=== PATIENT | male | born 1945 | race Caucasian/White ===

== ENCOUNTER 2023-09-25 09:56 | Observation (INO) ==
[2023-09-25] MEDS ORDERED: IOPAMIDOL 100 ML BOTTLE IV ONE (09:57)
[2023-09-25 10:14] LABS: POC Calcium, Ionized 1.27 (1.16-1.32); POC Creatinine 0.8 (0.6-1.2); POC Potassium 4.5 (3.3-5.1)
[2023-09-25 10:24] LABS: POC INR 1.2 (0.8-1.2); POC Pro Time 14.4 (11.9-14.5)
[2023-09-25 10:25] LABS: Basophils # (Auto) 0.06 K/mcL (0.00-0.30); Basophils % (Auto) 0.7 % (0.0-2.0); Eosinophils % (Auto) 2.2 % (0.0-7.0); Hematocrit 40.1 % (40.1-51.0); Lymphocytes # (Auto) 1.07 K/mcL (1.50-4.80); Lymphocytes % (Auto) 11.9 % (15.5-49.0); Mean Cell Volume 96.2 fL (80.0-100.0); Mean Corpuscular HGB Conc 32.4 g/dL (31.0-36.0); Mean Platelet Volume 10.3 fL (8.8-12.5); Monocytes # (Auto) 1.02 K/mcL (0.10-0.90); Monocytes % (Auto) 11.3 % (1.0-12.0); Neutrophils % (Auto) 73.8 % (38.0-78.0); Platelet Count 204 K/mcL (140-440); RBC 4.17 M/mcL (4.63-6.08); Red Cell Distribution Width 12.7 % (11.5-14.5)
[2023-09-25 10:51] LABS: ALT/SGPT < 5 U/L (<40); AST/SGOT 14 U/L (<40); Albumin 4.2 gm/dL (3.2-5.2); Alkaline Phosphatase 55 U/L (39-117); Bilirubin,Direct < 0.2 mg/dL (0-0.3); Bilirubin,Total 0.6 mg/dL (0.1-1.0); C-Reactive Protein 0.81 mg/dL (0.03-0.80); Globulin 2.3 gm/dL (2.2-3.7)
[2023-09-25] MEDS: DIPH,PERTUSS(ACELL),TET VAC/PF 0.5 ML SYRINGE IM ONE (11:11)
[2023-09-25 11:23] LABS: Appearance,Urine Clear (Clear); Bilirubin,Urine Negative (Negative); Color,Urine Light yellow; Culture Indicated,Urine No; Glucose,Urine (UA) Negative (Negative); Ketones,Urine Negative (Negative); Leukocyte Esterase,Urine Negative /uL (Negative); Nitrate,Urine Negative (Negative); Protein,Urine Negative (Negative); Specific Gravity,Urine 1.015 (1.000-1.035); Urine Blood Negative ery/mcL (Negative); Urobilinogen,Urine Normal
[2023-09-25] MEDS: AMPICILLIN SODIUM/SULBACTAM NA 3 GM in 0.9 % SODIUM CHLORIDE 100 ML IV ONE (11:54)
[2023-09-25] MEDS: valACYclovir 500 MG TABLET PO ONE (12:04)
[2023-09-25] MEDS ORDERED: SENNOSIDES 1 TABLET PO PRN (12:36)
[2023-09-25] MEDS ORDERED: ACETAMINOPHEN 325 MG TABLET PO PRN (12:36)
[2023-09-25] MEDS ORDERED: ONDANSETRON 4 MG/2 ML VIAL IV PRN (12:36)
[2023-09-25] MEDS: 0.9 % SODIUM CHLORIDE 10 ML SYRINGE IV SCH (16:21)
[2023-09-25] MEDS: CARBOXYMETHYLCELLULOSE SODIUM 1 EACH DROPER.GEL OS SCH (17:50)
[2023-09-25] MEDS: AMPICILLIN SODIUM/SULBACTAM NA 3 GM in 0.9 % SODIUM CHLORIDE 100 ML IV SCH (17:50)
[2023-09-25] MEDS: IBUPROFEN 200 MG TABLET PO PRN (20:01)
[2023-09-25] MEDS: valACYclovir 500 MG TABLET PO SCH (20:02)
[2023-09-25 23:58] VITALS: TEMP 98.2
[2023-09-26 06:31] VITALS: O2SAT 95
[2023-09-26] MEDS: predniSONE 20 MG TABLET PO SCH (10:33)
== END 2023-09-26 13:25 | disposition home or self-care (01) ==
LOC: ED 09:56 → MEDSUR 09:56
PROVIDERS: ADMIT Internal Medicine; ATTEND Internal Medicine

== ENCOUNTER 2025-07-15 15:05 | Observation (INO) ==
[2025-07-15] MEDS ORDERED: ONDANSETRON 4 MG/2 ML VIAL IV PRN ×2 (15:29→17:52)
[2025-07-15] MEDS: PIPERACILLIN SODIUM/TAZOBACTAM 4.5 GM in DEXTROSE 5% IN WATER 50 ML IV ONE (15:46)
[2025-07-15 16:10] LABS: Basophils # (Auto) 0.05 K/mcL (0.00-0.30); Basophils % (Auto) 0.5 % (0.0-2.0); Eosinophils # (Auto) 0.20 K/mcL (0.00-0.70); Eosinophils % (Auto) 2.0 % (0.0-7.0); Hematocrit 43.2 % (40.1-51.0); Hemoglobin 14.4 g/dL (13.7-17.5); Lymphocytes # (Auto) 1.32 K/mcL (1.50-4.80); Lymphocytes % (Auto) 13.3 % (15.5-49.0); Mean Corpuscular HGB Conc 33.3 g/dL (31.0-36.0); Monocytes # (Auto) 0.96 K/mcL (0.10-0.90); Monocytes % (Auto) 9.6 % (1.0-12.0); Neutrophils % (Auto) 74.4 % (38.0-78.0); Platelet Count 188 K/mcL (140-440); RBC 4.46 M/mcL (4.63-6.08); WBC 10.0 K/mcL (4.5-11.0)
[2025-07-15 16:36] LABS: ALT/SGPT 23 U/L (<40); AST/SGOT 18 U/L (<40); Albumin 4.3 gm/dL (3.2-5.2); Albumin/Globulin Ratio 1.7 (1.0-2.3); Alkaline Phosphatase 55 U/L (39-117); Anion Gap 11.0 (8.0-16.0); Bilirubin,Total 0.7 mg/dL (0.1-1.0); Blood Urea Nitrogen 12 mg/dL (8-23); Calcium 9.9 mg/dL (8.6-10.4); Carbon Dioxide 24 mmol/L (22-30); Chloride 100 mmol/L (96-108); Globulin 2.5 gm/dL (2.2-3.7); Glucose 105 mg/dL (70-105); Potassium 4.3 mmol/L (3.3-5.1); Sodium 135 mmol/L (133-145)
[2025-07-15 17:00] LABS: INR 1.0 (0.9-1.1); Prothrombin Time 13.8 sec (11.9-14.5)
[2025-07-15 17:18] LABS: Bacteria,Urine 0 /hpf (0); Bilirubin,Urine NEGATIVE (Negative); Color,Urine LT. YELLOW; Glucose,Urine (UA) NEGATIVE (Negative); Ketones,Urine NEGATIVE (Negative); Leukocyte Esterase,Urine NEGATIVE /uL (Negative); PH,Urine 6.5 (5.0-9.0); Protein,Urine NEGATIVE (Negative); Specific Gravity,Urine <= 1.005 (1.000-1.035); Urobilinogen,Urine 0.2 mg/dL
[2025-07-15] MEDS ORDERED: ACETAMINOPHEN 325 MG TABLET PO PRN (17:52)
[2025-07-15] MEDS: PIPERACILLIN SODIUM/TAZOBACTAM 4.5 GM in DEXTROSE 5% IN WATER 100 ML IV SCH (18:32)
[2025-07-15] MEDS: PIPERACILLIN SODIUM/TAZOBACTAM 3.375 GM in DEXTROSE 5% IN WATER 100 ML IV SCH (18:34)
[2025-07-15] MEDS: ENOXAPARIN 40 MG/0.4 ML SYRINGE SQ SCH (20:10)
[2025-07-15] MEDS: SOTALOL 80 MG TABLET PO SCH (20:11)
[2025-07-15] MEDS: MELATONIN 3 MG TABLET PO SCH (20:11)
[2025-07-15] MEDS: LACTATED RINGERS 1,000 ML IV SCH (21:15)
[2025-07-15] MEDS: 0.9 % SODIUM CHLORIDE 10 ML SYRINGE IV SCH (21:43)
[2025-07-15] MEDS: 0.9 % SODIUM CHLORIDE 1,000 ML IV SCH (21:43)
[2025-07-16 06:39] LABS: Basophils # (Auto) 0.06 K/mcL (0.00-0.30); Basophils % (Auto) 0.7 % (0.0-2.0); Eosinophils # (Auto) 0.22 K/mcL (0.00-0.70); Eosinophils % (Auto) 2.6 % (0.0-7.0); Hematocrit 40.8 % (40.1-51.0); Hemoglobin 13.5 g/dL (13.7-17.5); Lymphocytes # (Auto) 1.13 K/mcL (1.50-4.80); Lymphocytes % (Auto) 13.5 % (15.5-49.0); Mean Corpuscular HGB Conc 33.1 g/dL (31.0-36.0); Monocytes # (Auto) 0.92 K/mcL (0.10-0.90); Monocytes % (Auto) 11.0 % (1.0-12.0); Neutrophils % (Auto) 72.0 % (38.0-78.0); Platelet Count 173 K/mcL (140-440); RBC 4.19 M/mcL (4.63-6.08); WBC 8.4 K/mcL (4.5-11.0)
[2025-07-16] MEDS ORDERED: KETOROLAC 30 MG/ML VIAL ONE (06:43)
[2025-07-16] MEDS ORDERED: ROCURONIUM 10 MG/ML ML IV ONE (06:43)
[2025-07-16] MEDS ORDERED: ONDANSETRON 4 MG/2 ML VIAL ONE (06:43)
[2025-07-16] MEDS ORDERED: DEXAMETHASONE 10 MG/ML VIAL ONE (06:43)
[2025-07-16] MEDS ORDERED: PROPOFOL 200 MG/20 ML VIAL IV ONE (06:44)
[2025-07-16] MEDS ORDERED: MIDAZOLAM 2 MG/2 ML VIAL ONE (06:44)
[2025-07-16] MEDS ORDERED: fentaNYL 100 MCG/2 ML VIAL ONE (06:44)
[2025-07-16 06:48] LABS: Anion Gap 10.0 (8.0-16.0); Blood Urea Nitrogen 11 mg/dL (8-23); Calcium 9.5 mg/dL (8.6-10.4); Carbon Dioxide 26 mmol/L (22-30); Chloride 103 mmol/L (96-108); Glucose 114 mg/dL (70-105); Potassium 4.1 mmol/L (3.3-5.1); Sodium 139 mmol/L (133-145)
[2025-07-16] MEDS ORDERED: SUGAMMADEX SODIUM 200 MG/2 ML VIAL IV ONE (07:59)
[2025-07-16] MEDS ORDERED: ePHEDrine 50 MG/5 ML SYRINGE (ANEST) IV ONE (08:17)
[2025-07-16] MEDS ORDERED: NALOXONE HCL 0.4 MG/ML VIAL IV PRN (08:20)
[2025-07-16] MEDS ORDERED: diphenhydrAMINE 50 MG/ML VIAL IV PRN (08:20)
[2025-07-16] MEDS ORDERED: ePHEDrine 50 MG/ML AMPUL IV PRN (08:20)
[2025-07-16] MEDS ORDERED: BENZOCAINE/MENTHOL 1 LOZENGE PO PRN (08:20)
[2025-07-16] MEDS ORDERED: ONDANSETRON 4 MG/2 ML VIAL IV PRN (08:20)
[2025-07-16] MEDS ORDERED: fentaNYL 100 MCG/2 ML VIAL IV PRN (08:20)
[2025-07-16] MEDS ORDERED: MEPERIDINE 25 MG/ML VIAL IV PRN (08:20)
[2025-07-16] MEDS ORDERED: DROPERIDOL 5 MG/2 ML VIAL IV PRN (08:20)
[2025-07-16] MEDS ORDERED: METOPROLOL TARTRATE 5 MG/5 ML VIAL IV PRN (08:20)
[2025-07-16] MEDS ORDERED: IPRATROPIUM/ALBUTEROL 3 ML AMPUL.NEB NEB PRN (08:20)
[2025-07-16] MEDS: BUPIVACAINE 0.25% 50 ML VIAL IJ ONE (09:16)
[2025-07-16] MEDS: LOSARTAN 25 MG TABLET PO SCH (10:08)
[2025-07-16 12:57] VITALS: TEMP 97.8; O2SAT 98
== END 2025-07-16 14:25 | disposition home or self-care (01) ==
LOC: ED 15:05 → MEDSUR 15:05 → ED 17:34
PROVIDERS: ADMIT Surgery; ATTEND Surgery
PROC: LAPAPPY (ICD-10-PCS; 2025-07-16 07:24)